=== PATIENT | female | born 1965 | race African-American/Black ===

== ENCOUNTER 2018-04-24 11:26 | Emergency (ER) | payer MEDICAID ==
[2018-04-24] MEDS ORDERED: SODIUM CHLORIDE 0.9% 1,000 ML IV ONE (12:08)
[2018-04-24] MEDS ORDERED: INSULIN REGULAR HUMAN 100 UNIT/1 ML 10 ML MDV IVP STA (12:09)
--- NOTE | 2018-04-24 12:10 | ED Physician Documentation ---
History of Present Illness - Stated complaint Stated Complaint: HIGH BLOOD SUGAR - Chief complaint Chief Complaint: General - History obtained from History obtained from: Patient, Family - History of Present Illness Timing: Last night (This is a 52-year-old woman with type 2 diabetes on metformin only. She is never been on insulin. She was originally diagnosed about 2-3 years ago. She checks her blood sugars at most and consistently, she estimates the last time she checked was a month or 2 ago. She notes over the last week that she had urinary frequency and she feels like she has dry lips and mouth. Also slightly blurry vision. Starting last night she developed nausea and did not eat. She checked her blood sugar this morning and it was greater than 400. She denies shortness of breath. There is no dysuria or foul-smelling urine. No fevers.) Review of Systems Ten Systems: 10 systems reviewed and negative Constitutional: reports: Fatigue. denies: Fever, Chills Cardiac: denies: Chest pain / pressure, Palpitations Respiratory: denies: Dyspnea, Cough PD PAST MEDICAL HISTORY - Past Medical History Cardiovascular: Hypertension, High cholesterol Respiratory: None Neuro: CVA, Migraines Endocrine/Autoimmune: Type 2 diabetes GI: GERD SHEET METAL HELPER: None Psych: Depression Musculoskeletal: Osteoarthritis, Fibromyalgia, Gout Derm: None Other Past Medical History: on trintellix fro depression - Past Surgical History Past Surgical History: Yes General: Cholecystectomy /SHEET METAL HELPER: Hysterectomy HEENT: Detached retina repair - Present Medications Home Medications: Ambulatory Orders Medication Instructions Recorded Confirmed Aspirin Chewable [St Bao 1 tab PO DAILY 04/24/18 04/24/18 Aspirin] Atorvastatin Calcium 40 mg PO DAILY 04/24/18 04/24/18 Gabapentin 800 mg PO TID 04/24/18 04/24/18 Losartan/Hydrochlorothiazide 1 tab PO DAILY 04/24/18 04/24/18 [Losartan-Hctz 100-25 mg Tab] Metformin HCl 2 tab PO BID #120 tablet 04/24/18 Metformin HCl 500 mg PO BID 04/24/18 04/24/18 Vortioxetine Hydrobromide 10 mg PO DAILY 04/24/18 04/24/18 [Brintellix] amLODIPine [Norvasc] 5 mg PO DAILY 04/24/18 04/24/18 - Allergies Allergies/Adverse Reactions: Allergies Allergy/AdvReac Type Severity Reaction Status Date / Time No Known Drug Allergies Allergy Verified 04/24/18 11:41 - Social History Does the pt smoke?: Yes Smoking Status: Light tobacco smoker Does the pt drink ETOH?: No Does the pt have substance abuse?: No - Immunizations Immunizations are current?: Yes - POLST Patient has POLST: No PD ED PE NORMAL - Vitals Vital signs reviewed: Yes - General General: Alert and oriented X 3, No acute distress - HEENT HEENT: EOMI, Pharynx benign - Neck Neck: Supple, no meningeal sign, No bony TTP - Cardiac Cardiac: RRR, No murmur - Respiratory Respiratory: No respiratory distress, Clear bilaterally - Abdomen Abdomen: Soft, Non tender - Derm Derm: No rash - Extremities Extremities: No edema, No calf tenderness / cord - Neuro Neuro: Alert and oriented X 3, Normal speech Results - Vitals Vitals: Vital Signs - 24 hr 04/24/18 11:36 Temperature 37.1 C Heart Rate 94 Respiratory 18 Rate Blood Pressure 121/103 H O2 Saturation 97 Oxygen O2 Source Room air - Labs Labs: Laboratory Tests 04/24/18 04/24/18 04/24/18 11:34 11:40 12:45 WBC 5.6 RBC 4.65 Hgb 13.8 Hct 40.7 MCV 87.5 MCH 29.8 MCHC 34.0 RDW 13.3 Plt Count 207 MPV 9.1 Neut # (Auto) 3.7 Lymph # (Auto) 1.6 Jenkins # (Auto) 0.3 Eos # (Auto) 0.1 Baso # (Auto) 0.0 Absolute Nucleated RBC 0.00 Nucleated RBC % 0.0 VBG pH VBG pCO2 VBG pO2 VBG HCO3 VBG Total CO2 VBG O2 Saturation VBG Base Excess Sodium Potassium Chloride Carbon Dioxide Anion Gap BUN Creatinine Estimated GFR (MDRD) Glucose POC Whole Bld Glucose 343 H Calcium Total Bilirubin AST ALT Alkaline Phosphatase Total Protein Albumin Globulin Albumin/Globulin Ratio Lipase Urine Color DARK YELLOW Urine Clarity CLOUDY Urine pH 5.5 Ur Specific [place] >=1.030 H Urine Protein 100 H Urine Glucose (UA) 500 H Urine Ketones TRACE Urine Occult Blood NEGATIVE Urine Nitrite NEGATIVE Urine Bilirubin NEGATIVE Urine Urobilinogen 1 (NORMAL) Ur Leukocyte Esterase TRACE H Urine RBC 0-5 Urine WBC 6-10 H Ur Squamous Epith Cells MANY Squamous H Urine Bacteria Moderate H Urine Casts 0-2 Hyaline Casts Urine Mucus Few Strands Ur Microscopic Review INDICATED Urine Culture Comments NOT INDICATED Serum Ketones 04/24/18 04/24/18 04/24/18 12:45 12:45 12:52 WBC RBC Hgb Hct MCV MCH MCHC RDW Plt Count MPV Neut # (Auto) Lymph # (Auto) Jenkins # (Auto) Eos # (Auto) Baso # (Auto) Absolute Nucleated RBC Nucleated RBC % VBG pH 7.349 VBG pCO2 47.4 VBG pO2 37.8 VBG HCO3 25.5 VBG Total CO2 27.0 VBG O2 Saturation 72.5 VBG Base Excess -0.6 Sodium 134 L Potassium 4.3 Chloride 97 L Carbon Dioxide 26 Anion Gap 11.0 BUN 15 Creatinine 1.0 Estimated GFR (MDRD) 71 L Glucose 346 H POC Whole Bld Glucose 325 H Calcium 9.0 Total Bilirubin 0.6 AST 16 ALT 10 Alkaline Phosphatase 90 Total Protein 7.5 Albumin 3.9 Globulin 3.6 Albumin/Globulin Ratio 1.1 Lipase 25 Urine Color Urine Clarity Urine pH Ur Specific [place] Urine Protein Urine Glucose (UA) Urine Ketones Urine Occult Blood Urine Nitrite Urine Bilirubin Urine Urobilinogen Ur Leukocyte Esterase Urine RBC Urine WBC Ur Squamous Epith Cells Urine Bacteria Urine Casts Urine Mucus Ur Microscopic Review Urine Culture Comments Serum Ketones NEGATIVE 04/24/18 14:18 WBC RBC Hgb Hct MCV MCH MCHC RDW Plt Count MPV Neut # (Auto) Lymph # (Auto) Jenkins # (Auto) Eos # (Auto) Baso # (Auto) Absolute Nucleated RBC Nucleated RBC % VBG pH VBG pCO2 VBG pO2 VBG HCO3 VBG Total CO2 VBG O2 Saturation VBG Base Excess Sodium Potassium Chloride Carbon Dioxide Anion Gap BUN Creatinine Estimated GFR (MDRD) Glucose POC Whole Bld Glucose 211 H Calcium Total Bilirubin AST ALT Alkaline Phosphatase Total Protein Albumin Globulin Albumin/Globulin Ratio Lipase Urine Color Urine Clarity Urine pH Ur Specific [place] Urine Protein Urine Glucose (UA) Urine Ketones Urine Occult Blood Urine Nitrite Urine Bilirubin Urine Urobilinogen Ur Leukocyte Esterase Urine RBC Urine WBC Ur Squamous Epith Cells Urine Bacteria Urine Casts Urine Mucus Ur Microscopic Review Urine Culture Comments Serum Ketones PD MEDICAL DECISION MAKING - ED course ED course: This is a 52-year-old woman with history of type 2 diabetes presents with uncontrolled blood sugars. There is no evidence of DKA. After the administration 1 L of crystalloid and 6 units of insulin IV her blood sugar was 211. She was advised to increase her metformin to 2 tablets twice a day and take her blood sugar daily and follow-up with her physician for further evaluation and treatment. Departure - Departure Disposition: 01 Home, Self Care Clinical Impression: Uncontrolled type 2 diabetes mellitus Qualifiers: Glycemic state: with hyperglycemia Qualified Code(s): E11.65 - Type 2 diabetes mellitus with hyperglycemia Condition: Good Record reviewed to determine appropriate education?: Yes Instructions: Diabetes Type 2 Coping, Diabetes Carbs Prescriptions: Metformin HCl 2 tab PO BID #120 tablet Comments: As discussed, increase your metformin to 2 tablets twice a day. Take your blood sugar daily and follow-up with your physician this week. Return for new or worsening symptoms.
[2018-04-24 13:07] LABS: BASOPHILS % (AUTO) 0.6 %; EOSINOPHILS # (AUTO) 0.1 10^3/uL (0.0-0.7); EOSINOPHILS % (AUTO) 1.2 %; HGB - HEMOGLOBIN 13.8 g/dL (12.0-16.0); LYMPHOCYTES # (AUTO) 1.6 10^3/uL (1.5-3.5); LYMPHOCYTES % (AUTO) 27.7 %; MEAN CORPUSCULAR HEMOGLOBIN 29.8 pg (27.0-31.0); MEAN CORPUSCULAR VOLUME 87.5 fL (81.0-99.0); MEAN PLATELET VOLUME 9.1 fL (7.9-10.8); MONOCYTES # (AUTO) 0.3 10^3/uL (0.0-1.0); MONOCYTES % (AUTO) 4.9 %; NEUTROPHILS # (AUTO) 3.7 10^3/uL (1.5-6.6); NEUTROPHILS % (AUTO) 65.6 %; PLT - PLATELET COUNT 207 10^3/uL (130-450); RED BLOOD COUNT 4.65 10^6/uL (4.20-5.40); RED CELL DISTRIBUTION WIDTH 13.3 % (12.0-15.0); WHITE BLOOD COUNT 5.6 x10^3/uL (4.8-10.8)
[2018-04-24 13:09] LABS: GLUCOSE, URINE (UA) 500 mg/dL (NEGATIVE); KETONES,URINE (UA) TRACE mg/dL (NEGATIVE); LEUKOCYTE ESTERASE, URINE TRACE (NEGATIVE); NITRITE,URINE NEGATIVE (NEGATIVE); OCCULT BLOOD,URINE NEGATIVE (NEGATIVE); PH,URINE 5.5 PH (5.0-7.5); PROTEIN,URINE 100 mg/dL (NEGATIVE); UROBILINOGEN,URINE 1 (NORMAL) E.U./dL (NORMAL)
[2018-04-24 13:20] LABS: ALBUMIN 3.9 g/dL (3.2-5.5); ALBUMIN/GLOBULIN RATIO 1.1 (1.0-2.2); ALKALINE PHOSPHATASE 90 IU/L (42-121); ALT ALANINE AMINOTRANSFERASE 10 IU/L (10-60); AST ASPARTATE AMINOTRANSFERASE 16 IU/L (10-42); BILIRUBIN,TOTAL 0.6 mg/dL (0.2-1.0); BUN - BLOOD UREA NITROGEN 15 mg/dL (6-20); CARBON DIOXIDE - CO2 26 mmol/L (21-32); CHLORIDE 97 mmol/L (101-111); GFR - MDRD 71 (>89); GLUCOSE 346 mg/dL (70-100); LIPASE 25 U/L (22-51); SODIUM 134 mmol/L (135-145); TOTAL PROTEIN 7.5 g/dL (6.7-8.2)
[2018-04-24 13:21] LABS: KETONES, SERUM (ACETEST) NEGATIVE (NEGATIVE)
[2018-04-24 13:23] LABS: BILIRUBIN,URINE NEGATIVE (NEGATIVE); CLARITY,URINE CLOUDY (CLEAR); ICTOTEST,URINE NEGATIVE
[2018-04-24 13:24] LABS: BACTERIA,URINE Moderate /HPF (None Seen); CASTS, URINE 0-2 Hyaline Casts /LPF; MUCUS,URINE Few Strands; RBC,URINE 0-5 /HPF (0-5); SQUAMOUS EPITHELIAL CELL,UR MANY Squamous (<= Few)
[2018-04-24 13:28] LABS: VBG BASE EXCESS -0.6 mmol/L (-2 - +2); VBG PCO2 47.4 mmHg (41-51); VBG PH 7.349 (7.31-7.41); VBG PO2 37.8 mmHg (25-47)
[2018-04-24 14:43] VITALS: BP 121/78
== END 2018-04-24 15:05 | disposition home or self-care (01) ==
LOC: ED 11:26
DX: E11.65 Type 2 diabetes mellitus with hyperglycemia (principal); Z79.84 Long term (current) use of oral hypoglycemic drugs; I10 Essential (primary) hypertension; Z79.82 Long term (current) use of aspirin; F17.200 Nicotine dependence, unspecified, uncomplicated
CPT/HCPCS: 36415; 80053; 81001; 82009; 82803; 83690; 85025; 96360; 99283; 99284; J1815; 81003; 87086

== ENCOUNTER 2018-04-30 17:23 | Emergency (ER) | payer MEDICAID ==
[2018-04-30] MEDS ORDERED: SODIUM CHLORIDE 0.9% 2,000 ML IV ONE (17:51)
[2018-04-30] MEDS ORDERED: INSULIN REGULAR HUMAN 100 UNIT/1 ML 10 ML MDV IVP STA (17:51)
[2018-04-30 18:10] LABS: BILIRUBIN,URINE NEGATIVE (NEGATIVE); GLUCOSE, URINE (UA) >=1000 mg/dL (NEGATIVE); KETONES,URINE (UA) NEGATIVE (NEGATIVE); LEUKOCYTE ESTERASE, URINE TRACE (NEGATIVE); NITRITE,URINE NEGATIVE (NEGATIVE); OCCULT BLOOD,URINE NEGATIVE (NEGATIVE); PROTEIN,URINE NEGATIVE (NEGATIVE); UROBILINOGEN,URINE 0.2 (NORMAL) E.U./dL (NORMAL)
[2018-04-30 18:12] LABS: CLARITY,URINE CLEAR (CLEAR)
[2018-04-30 18:27] LABS: VBG BASE EXCESS -2.3 mmol/L (-2 - +2); VBG PCO2 39.4 mmHg (41-51); VBG PH 7.377 (7.31-7.41); VBG TOTAL CO2 23.8 mmol/L (24-29)
[2018-04-30 18:32] LABS: BUN - BLOOD UREA NITROGEN 22 mg/dL (6-20); CALCIUM 9.7 mg/dL (8.5-10.3); CARBON DIOXIDE - CO2 26 mmol/L (21-32); CHLORIDE 96 mmol/L (101-111); CREATININE 0.9 mg/dL (0.4-1.0); GFR - MDRD 80 (>89); GLUCOSE 432 mg/dL (70-100); KETONES, SERUM (ACETEST) NEGATIVE (NEGATIVE); SODIUM 131 mmol/L (135-145)
[2018-04-30 18:33] LABS: BACTERIA,URINE None Seen /HPF (None Seen); RBC,URINE None Seen /HPF (0-5); SQUAMOUS EPITHELIAL CELL,UR MOD Squamous (<= Few); TRICHOMONAS,URINE PRESENT (None Seen)
--- NOTE | 2018-04-30 19:19 | ED Physician Documentation ---
History of Present Illness - Stated complaint Stated Complaint: HIGH BLOOD SUGAR - Chief complaint Chief Complaint: General - Additonal information Additional information: 52-year-old female presents the emergency department for evaluation of asymptomatic Hyperglycemia. The patient is a known diabetic and was recently started on a new oral medication in addition to her metformin. The patient's blood sugar is elevated today. The patient has no acute symptoms. The patient denies fevers, chest pain, shortness of breath, dysuria or acute infectious symptoms. The patient's had no recent steroid usage. Symptoms are described as mild. No other associated symptoms Review of Systems Constitutional: denies: Fever, Chills, Fatigue Eyes: denies: Discharge Ears: denies: Drainage/discharge Nose: denies: Congestion Throat: denies: Sore throat Cardiac: denies: Chest pain / pressure Respiratory: denies: Cough GI: denies: Abdominal Pain : denies: Dysuria Musculoskeletal: denies: Neck pain Neurologic: denies: Generalized weakness Immunocompromised: denies: Chemotherapy PD PAST MEDICAL HISTORY - Past Medical History Cardiovascular: Hypertension, High cholesterol Respiratory: None Neuro: CVA, Migraines Endocrine/Autoimmune: Type 2 diabetes GI: GERD MARINE RIGGER: None Psych: Depression Musculoskeletal: Osteoarthritis, Fibromyalgia, Gout Derm: None - Past Surgical History Past Surgical History: Yes General: Cholecystectomy /MARINE RIGGER: Hysterectomy HEENT: Detached retina repair - Present Medications Home Medications: Ambulatory Orders Medication Instructions Recorded Confirmed Aspirin Chewable [St Bao 1 tab PO DAILY 04/24/18 04/30/18 Aspirin] Atorvastatin Calcium 40 mg PO DAILY 04/24/18 04/30/18 Gabapentin 800 mg PO TID 04/24/18 04/30/18 Losartan/Hydrochlorothiazide 1 tab PO DAILY 04/24/18 04/30/18 [Losartan-Hctz 100-25 mg Tab] Metformin HCl 2 tab PO BID #120 tablet 04/24/18 04/30/18 Metformin HCl 500 mg PO BID 04/24/18 04/30/18 Vortioxetine Hydrobromide 10 mg PO DAILY 04/24/18 04/30/18 [Brintellix] amLODIPine [Norvasc] 5 mg PO DAILY 04/24/18 04/30/18 - Allergies Allergies/Adverse Reactions: Allergies Allergy/AdvReac Type Severity Reaction Status Date / Time No Known Drug Allergies Allergy Verified 04/30/18 17:34 - Social History Does the pt smoke?: Yes Smoking Status: Current every day smoker Does the pt drink ETOH?: No Does the pt have substance abuse?: No - Immunizations Immunizations are current?: Yes - POLST Patient has POLST: No PD ED PE NORMAL - General General: Alert and oriented X 3, No acute distress - HEENT HEENT: Atraumatic, PERRL, EOMI, Ears normal - Cardiac Cardiac: RRR, Strong equal pulses - Respiratory Respiratory: No respiratory distress, Clear bilaterally - Abdomen Abdomen: Soft, Non tender - Derm Derm: Normal color - Extremities Extremities: No deformity - Neuro Neuro: Alert and oriented X 3, Normal speech - Psych Psych: Normal affect Results - Vitals Vitals: Vital Signs - 24 hr 04/30/18 17:31 Temperature 36.2 C L Heart Rate 76 Respiratory 20 Rate Blood Pressure 120/68 O2 Saturation 99 Oxygen O2 Source Room air - Labs Labs: Laboratory Tests 04/30/18 04/30/18 04/30/18 17:39 17:54 18:15 VBG pH VBG pCO2 VBG pO2 VBG HCO3 VBG Total CO2 VBG O2 Saturation VBG Base Excess Sodium 131 L Potassium 4.0 Chloride 96 L Carbon Dioxide 26 Anion Gap 9.0 BUN 22 H Creatinine 0.9 Estimated GFR (MDRD) 80 L Glucose 432 H POC Whole Bld Glucose 449 H Calcium 9.7 Urine Color YELLOW Urine Clarity CLEAR Urine pH 6.0 Ur Specific [place] 1.010 Urine Protein NEGATIVE Urine Glucose (UA) >=1000 H Urine Ketones NEGATIVE Urine Occult Blood NEGATIVE Urine Nitrite NEGATIVE Urine Bilirubin NEGATIVE Urine Urobilinogen 0.2 (NORMAL) Ur Leukocyte Esterase TRACE H Urine RBC None Seen Urine WBC 0-3 Ur Squamous Epith Cells MOD Squamous H Urine Bacteria None Seen Urine Trichomonas PRESENT H Ur Microscopic Review INDICATED Urine Culture Comments NOT INDICATED Serum Ketones NEGATIVE 04/30/18 04/30/18 18:15 18:49 VBG pH 7.377 VBG pCO2 39.4 L VBG pO2 46.0 VBG HCO3 22.6 L VBG Total CO2 23.8 L VBG O2 Saturation 81.8 H VBG Base Excess -2.3 L Sodium Potassium Chloride Carbon Dioxide Anion Gap BUN Creatinine Estimated GFR (MDRD) Glucose POC Whole Bld Glucose 269 H Calcium Urine Color Urine Clarity Urine pH Ur Specific [place] Urine Protein Urine Glucose (UA) Urine Ketones Urine Occult Blood Urine Nitrite Urine Bilirubin Urine Urobilinogen Ur Leukocyte Esterase Urine RBC Urine WBC Ur Squamous Epith Cells Urine Bacteria Urine Trichomonas Ur Microscopic Review Urine Culture Comments Serum Ketones PD MEDICAL DECISION MAKING - ED course ED course: The patient's blood sugar is under control, the patient appears appropriate for discharge and ongoing outpatient management. I recommended close follow-up with primary care for further medication management. I discussed with the patient warning signs and recommended returning for any worsening or any concerns Departure - Departure Disposition: 01 Home, Self Care Clinical Impression: Hyperglycemia Condition: Good Instructions: Hyperglycemia Follow-Up: EMILEE EUBANKS [Primary Care Provider] - Within 3 Days (Please follow-up first thing this coming week for reevaluation of your diabetic medications with your primary care) Comments: Please return for any worsening or any concerns
[2018-04-30 19:32] VITALS: BP 105/75
== END 2018-04-30 19:36 | disposition home or self-care (01) ==
LOC: ED 17:23
DX: E11.65 Type 2 diabetes mellitus with hyperglycemia (principal); I10 Essential (primary) hypertension; E78.00 Pure hypercholesterolemia, unspecified; F17.200 Nicotine dependence, unspecified, uncomplicated; Z86.73 Personal history of transient ischemic attack (TIA), and cerebral infarction without residual deficits; Z79.84 Long term (current) use of oral hypoglycemic drugs; Z79.82 Long term (current) use of aspirin
CPT/HCPCS: 80048; 81001; 82009; 82803; 96360; 99283; J1815; 36415; 81003; 87086

== ENCOUNTER 2018-06-03 07:47 | Outpatient (CLI) | payer MEDICAID | END 2018-06-03 07:48 | disposition home or self-care (01) | LOC: LAB 07:47 | PROVIDERS: ATTEND Family Medicine | DX: E11.9 Type 2 diabetes mellitus without complications (principal); Z53.9 Procedure and treatment not carried out, unspecified reason | CPT/HCPCS: 36415; 82951 ==